=== PATIENT | male | born 1950 | race Caucasian/White ===

== ENCOUNTER → 2020-05-05 | Outpatient (CLI) | payer OTHER, MEDICARE ==
[~2020-05-05] VITALS: Ht 180.3 cm; Wt 136.1 kg
[~2020-05-05] MED LIST: ASA81BEC PO; BLOOD PRESSURE; DOXYCYCLINE 10100 MG PO; FISH OIL 1,001000 M1 PO; FLEXERIL; FLEXERIL PO; HYDROCODON-ACE1 EAC7; HYDROCODON-ACE1 EAC7 PO; IBUPROFEN 200200 M1 PO; LASIX 20 MG TAB20 MG PO; LEVOTHYROXIN0.025 MG PO; LEVOTHYROXINE150 MCG PO; LIPITOR 20 MG T20 M1 PO; MECLIZINE HCL25 M1 PO; MUCINEX600 MG PO; MULTIVITAMINS PO; PRINIVIL20 M1 PO; SUPER THERAVIT1 EACH PO; THYROID MED; TOPROL XL50 MG PO; ZESTORETIC; ZESTORETIC 20-1 EAC1 PO
[2020-05-05 12:58] VITALS: BP 145/83
--- NOTE | 2020-05-05 13:00 | NUR ---
Pain Clinic Assessment: 1. History of Osteoarthritis: BACK History of Rheumatoid Arthritis: Not Applicable 2. Height: 5 ft. 11 in. 180.3 cm. Weight: 300.0 lb. oz. 136.080 kg. Patient's BMI: 41.9 3. Vital Signs: BP: 145/83 Pulse: 69 Resp: 18 Temp: 02 Sat: 96 ECG Mon: 4. Pain Intensity: 5 5. Fall Risk: Dizziness: Needs help standing or walking: Fallen in the last 3 months: Fall risk comments: 6. Patient on Blood Thinner: None 7. History of Hypertension: Y 8. Opioid Therapy greater than 6 weeks: N Opiate Contract Signed: 9. Risk Assessment Tool Provided: 0-low 10. Functional Assessment Tool: / 11. Recreational Drug Use: Never Drug Type: Tobacco Use: Never Smoker Tobacco Type: Amount or Packs/day: How Many Years: Alcohol Use: No Frequency: Quant:
--- NOTE | 2020-05-12 11:11 | HPC ---
[facility] [address] [place] [address] PAIN MANAGEMENT CONSULTATION Name: JORI QUIROZ Room #: [facility] Martha#: [id number] Admission: 05/05/20 Attend Phys: Luis Lopez DO Discharge: Date of : 50 Report #: [id number] CC: Luis Meier NP DATE OF SERVICE: 05/05/2020 REFERRING NURSE PRACTITIONER: Kaylee Meier. CHIEF COMPLAINT: Low back pain, bilateral lower extremity pain. HISTORY OF PRESENT ILLNESS: As you know, the patient is a 70-year-old male who reports longstanding history of low back pain and bilateral lower extremity pain. He states the pain has been present for an extended period of time. He states his pain is present throughout the day and progresses over the daytime hours. He has been referred to our service to discuss lumbar epidural injections under fluoroscopic guidance. He sought evaluation through neurosurgery, who advised conservative treatment options as an initial treatment course with surgical options to be entertained if more conservative treatments do not provide benefit. The patient indicates today his pain is rhythmic. He describes his pain as aching and pulling. He describes pain level at 5/10 today, daily average of 5/10, worst pain has been is 8/10. He states that driving or sitting towards the right side exacerbates symptoms. Standing tends to hurt his left leg. He has been referred to our service to discuss undergoing epidural injections under fluoroscopic guidance to address suspected lumbar radiculopathy. PAST MEDICAL HISTORY: 1. Hypothyroidism. 2. Dyslipidemia. 3. Hypertension. 4. Dizziness. 5. Lumbar radiculopathy. 6. Osteoarthritis. PAST SURGICAL HISTORY: Lumbar spine surgery x 2. SOCIAL HISTORY: The patient reports he is a nonsmoker. He denies IV or illicit drug use. Denies any chronic alcohol use. He is retired, retiring years ago, not receiving workmen's compensation nor is he trying to obtain disability benefits. He is unaccompanied at today's visit. ALLERGIES: CIPROFLOXACIN, AMOXICILLIN AND PENICILLIN. CURRENT MEDICATIONS: Mucinex 600 mg b.i.d., multivitamin 1 tab per day, meclizine 25 mg p.r.n., levothyroxine 150 mcg once a day, cyclobenzaprine 10 mg 3 times a day, atorvastatin 20 mg per day, Lasix 20 mg per day, lisinopril 20 mg per day, Toprol-XL 50 mg once a day, aspirin 81 mg dose once a day. IMAGING: No imaging is available. PQRS: The patient has known lumbar facet arthropathy. Bilateral hips and knees are arthritic. No rheumatoid arthritis. He is placing pain intensity at 5/10, not a fall risk nor has he had a fall in last 3 months. He is not on blood thinners, but is treated for hypertension. He is not on chronic opioids and has a low opiate addiction potential based on our assessment tool. Pain impact 44/70, moderate to severe interference of daily activities secondary to pain. PHYSICAL EXAMINATION: VITAL SIGNS: Blood pressure 145/83, pulse 69, respiratory rate 18 and unlabored. The patient is 96% on room air. Height 5 feet 11 inches tall, weight 300 pounds, BMI calculated 41.9. GENERAL: Well-developed, well-nourished, well-hydrated, class 3, morbidly obese 70-year-old male appearing stated age. He is placing current pain score 5/10. HEENT: Normocephalic, atraumatic. Pupils equal, round and reactive. Extraocular muscles are intact. Speech is fluent. The patient deemed a fair historian. LUNGS: Clear, no wheeze, rhonchi or rales. CARDIOVASCULAR: Regular. No appreciable gallop, no rub. ABDOMEN: Soft, obese, normal active bowel sounds. EXTREMITIES: Show no clubbing, no appreciable cyanosis or edema. MUSCULOSKELETAL: Lower extremity strength equal and symmetrical 5/5, intact to light touch from L1 through S2 dermatomes. Seated straight leg raising negative. Supine straight leg raising positive on the right. Anahy's test is negative. Modified Gaenslen's positive for axial low back pain. Ankle clonus negative. Babinski is negative. Gait appears mildly antalgic favoring right lower extremity over left. ASSESSMENT: 1. Lumbar radiculopathy. 2. Lumbosacral spondylosis with radiculopathy. 3. Morbid obesity. PLAN: 1. The patient has been referred to our service to discuss the possibility of undergoing a lumbar epidural injection under fluoroscopic guidance. We have for completeness sake also described all six different treatment options we have available for lumbar radiculopathy. We were unable to review the patient's MRI with the patient as there was no imaging available to us to discuss. He states he has had imaging, but we have yet to be unable to obtain this. We did discuss in generalities the treatment options we have available. Following was discussed with the patient today. We discussed physical therapy, stretching exercise, core strengthening and a concerted effort at weight loss, which will be necessary to maintain efficacy over a period of time. We discussed suggestions in medication management such as amitriptyline, nortriptyline, Cymbalta, Lyrica and gabapentin. We discussed lumbar epidural injections for which the patient was referred to our clinic. We discussed spinal cord stimulator therapy as a temporizing measure to improve pain. We also discussed surgical options for which the patient has already had meetings with Neurosurgery. After reviewing the risks and benefits of all proposed treatment options, the patient chose to begin with a lumbar epidural injection under fluoroscopic guidance. 2. The patient has been advised risks and benefits of a lumbar epidural injection. These risks include but are not necessarily limited to bleeding, bruising, infection, worsening pain, no relief of pain, also risk of temporary or permanent muscle weakness, temporary or permanent nerve damage, possible paralysis, post-dural puncture headache and . The patient states understood, wished to proceed. 3. No medication changes made at today's visit. The patient will continue current medical therapy as prior prescribed. 4. We plan to see the patient back in followup visit in 30 days. At that time, review the efficacy of today's epidural injection to determine if the next in the series of epidural injections might be warranted. 5. We wish to thank nurse practitioner, Ara Meier for the opportunity to see this patient in consultation. We will keep you apprised of his response to treatment as we address suspected lumbar radiculopathy. Again, we wish to thank you for the opportunity to see the patient in consultation. PROCEDURE NOTE DESCRIPTION OF PROCEDURE: L5-S1 right parasagittal epidural steroid injection under fluoroscopic guidance. This is the first procedure of the first series that the patient is undergoing. After obtaining written consent, the patient was taken back to the fluoroscopy suite, placed in a prone position with pillow under the abdomen to decrease lumbar lordosis. The skin overlying the lumbosacral area was then prepped and draped in aseptic fashion. The L5-S1 vertebral interspace was then identified by AP fluoroscopy. The skin and subcutaneous tissue overlying the target site of injection was anesthetized with 3 mL 1% lidocaine. A 20-gauge 3-1/2 inch Tuohy needle was then advanced under fluoroscopic guidance towards the epidural space using a right parasagittal approach. The epidural space was identified using loss of resistance to air technique. After negative aspiration for heme or cerebrospinal fluid, a total of 1 mL of Omnipaque was injected. A lumbar epidurogram was confirmed using both AP and lateral fluoroscopy. After negative aspiration for heme or cerebrospinal fluid, 5 mL of a solution containing 2 mL 40 mg per mL, 80 mg total triamcinolone along with 3 mL of lidocaine 1% was injected in increments. Contrast spread was noted posterior epidural space. The needle was then retracted approximately half way and needle tract flushed with 1 mL of 1% percent lidocaine. Needle was then removed. There were no apparent sensory or motor deficits in the lower extremity following the procedure. A sterile bandage was placed over the injection site. The heart rate, pulse, oximetry and blood pressure were continuously monitored after the procedure. There were no apparent complications. The patient tolerated the procedure well and was carefully escorted to the recovery room in stable condition. There were no apparent complications. After meeting discharge criteria, the patient was then discharged home. <ELECTRONICALLY SIGNED> By: Luis Lopez DO 05/12/20 [id number] Luis Lopez DO /nt
== END | disposition home or self-care (01) ==
LOC: PAIN 06:50
PROVIDERS: ATTEND Anesthesiology Pain Medicine
DX: M47.27 Other spondylosis with radiculopathy, lumbosacral region (principal); G89.29 Other chronic pain; I10 Essential (primary) hypertension; E78.5 Hyperlipidemia, unspecified; E03.9 Hypothyroidism, unspecified; M19.90 Unspecified osteoarthritis, unspecified site; E66.01 Morbid (severe) obesity due to excess calories; Z98.890 Other specified postprocedural states; Z79.899 Other long term (current) drug therapy; Z68.41 Body mass index [BMI] 40.0-44.9, adult; Z88.8 Allergy status to other drugs, medicaments and biological substances